=== PATIENT | female | born 1970 | race Caucasian/White ===

== ENCOUNTER 2017-11-04 03:33 | Emergency (ER) | payer OTHER, MEDICAID, SELFPAY ==
[2017-11-04 03:40] VITALS: BP 116/72; PULSE 80; RESP 18; TEMP 36.7; O2SAT 99; BMI 24.0
[2017-11-04] MEDS: MECLIZINE HCL 12.5 MG TABLET 50 MG PO (03:58)
--- NOTE | 2017-11-04 04:47 | ED_ITS ---
HPI - Dizziness General Chief Complaint: Dizziness Stated Complaint: VERTIGO ISSUES Time Seen by Provider: 11/04/17 03:50 Source: patient Mode of arrival: ambulatory Limitations: no limitations History of Present Illness HPI Narrative: The patient developed dizziness tonight. she feels a little ear pressure. She has no other URI symptoms. Specifically no sore throat or fever. She denies headache or visual changes. She has no peripheral numbness or weakness. She has a prior history of vertigo. She has done well with meclizine previously. She has not vomited. Related Data Previous Rx's Medication Instructions Recorded meclizine 25 mg PO QID PRN #20 tab 11/04/17 Allergies Allergy/AdvReac Type Severity Reaction Status Date / Time moxifloxacin [From AVELOX] Allergy Unknown Hives Verified 09/22/17 19:07 Review of Systems Review of Systems All systems reviewed & are unremarkable except as noted in HPI and below Constitutional Denies chills, Denies fever(s), Denies headache(s), Denies lethargy and Denies weakness Eyes Comments: No visual changes. ENT Ears, Nose, Mouth, and Throat: Reports vertigo, Reports dizziness, Reports otalgia, Denies headache(s), Denies neck pain, Denies post nasal drip, Denies sinus pressure and Denies sore throat Cardiovascular Denies chest pain, Denies irregular heart rhythm, Denies palpitations and Denies dyspnea Respiratory Denies dyspnea Gastrointestinal Gastrointestinal: Reports nausea and Denies vomiting Musculoskeletal Denies neck pain Neurologic Reports vertigo, Reports dizziness, Denies headache(s) and Denies weakness Endocrine Denies palpitations [facility] Social History Smoking Status: Former smoker Exam Initial Vital Signs Initial Vital Signs: Vital Signs Temperature 98.1 F 11/04/17 03:40 Pulse Rate 80 11/04/17 03:40 Respiratory Rate 18 11/04/17 03:40 Blood Pressure 116/72 11/04/17 03:40 Pulse Oximetry 99 11/04/17 03:40 Const General: cooperative and well developed Nutritional Appearance: well nourished Orientation: alert, awake, oriented x3 and not confused HENSD Head: normocephalic and atraumatic Ears: external ears normal, TM normal on the left and TM abnormal other (The right TM is retracted.) Nose: external nose normal and No nasal discharge Face and sinus: sinuses nontender, face symmetric, no sinus tenderness and No dry mucous membranes Mouth: oral mucosae normal and moist mucous membranes Teeth and gingiva: dentition normal Throat: tonsils normal and uvula midline Eyes General: appearance normal, both eyes and all related structures Eyelids: eyelids normal Conjunctivae: conjunctivae normal Sclera: sclerae normal Pupils: PERRL EOM: EOM intact bilaterally Neck Neck: No lymphadenopathy and No tender Resp Effort & Inspection: normal respiratory effort, able to speak in complete sentences, no respiratory distress and no use of accessory muscles Auscultation: clear to auscultation bilaterally, no rales, no rhonchi and no wheezes Cardio Rate: regular rate Rhythm: regular rhythm Heart Sounds: no click, no gallops, no murmurs and no rubs Pulses: normal peripheral pulses Neuro General: alert, oriented x3, gait normal and no focal motor deficits Speech: speech normal Course Vital Signs - 8 hr 11/04/17 03:40 Temperature 98.1 F Pulse Rate 80 Respiratory Rate 18 Blood Pressure 116/72 Pulse Oximetry 99 Discharge Plan Departure Patient Disposition: Home, Self-Care Clinical Impression: Vertigo Discharge Date/Time: 11/04/17 04:59 Instructions: Vertigo Activity Restrictions/Additional Instructions: Meclizine every 6 hours as needed for dizziness or nausea. Return here or see your doctor if worse. Prescriptions: New meclizine 25 mg tablet 25 mg PO QID PRN (Reason: vertigo) Qty: 20 RF: 0
[2017-11-04 04:59] VITALS: BP 119/73; PULSE 76; RESP 18; O2SAT 99
== END 2017-11-04 04:59 | disposition home or self-care (01) ==
PROVIDERS: Emergency Provider Emergency Medicine
DX: R42 Dizziness and giddiness (principal)
CPT/HCPCS: 99282

== ENCOUNTER 2018-03-29 15:37 | Emergency (ER) | payer OTHER, MEDICAID, SELFPAY ==
[2018-03-29 15:46] VITALS: BP 139/87; PULSE 74; RESP 15; TEMP 36.9; O2SAT 99; BMI 24.0
--- NOTE | 2018-03-29 17:01 | ED.UPPEXIN ---
HPI - Extremity Injury (Upper) <VALENTINA Velasquez - Last Filed: 03/29/18 19:28> General Chief Complaint: Extremity Injury, Upper Stated Complaint: fall in shower, left should and right hip pain Time Seen by Provider: 03/29/18 16:42 Source: patient Mode of arrival: ambulatory Limitations: no limitations History of Present Illness HPI narrative: pt c/o almost falling in shower last night, slipped on wet and R leg went forward causing hip pain and she grabbed rail with L hand which caused her to pull her L shoulder, R handed complaint: injury to: left and shoulder Onset (ago): day(s) (last night) Other injuries: RLE (R hip) Handedness: right Place: home Severity: moderate Relieving factors: none Exacerbating factors: movement of extremity Context: other Associated symptoms: denies other symptoms Related Data Previous Rx's Medication Instructions Recorded tramadol [Ultram] 50 mg PO Q6H PRN #20 tab 03/29/18 Allergies Allergy/AdvReac Type Severity Reaction Status Date / Time moxifloxacin [From AVELOX] Allergy Unknown Hives Verified 03/29/18 15:46 Review of Systems <VALENTINA Velasquez - Last Filed: 03/29/18 19:28> Review of Systems All systems reviewed & are unremarkable except as noted in HPI and below Constitutional Reports as per HPI Musculoskeletal Reports as per HPI, Reports abnormal gait, Denies deformity, Reports limited range of motion, Denies muscle weakness and Denies numbness Integumentary/Breasts Reports as per HPI, Denies unusual bruising and Denies wounds Neurologic Reports abnormal gait and Denies numbness Exam <VALENTINA Velasquez - Last Filed: 03/29/18 19:28> Initial Vital Signs Initial Vital Signs: Vital Signs Temperature 98.4 F 03/29/18 15:46 Pulse Rate 74 03/29/18 15:46 Respiratory Rate 15 03/29/18 15:46 Blood Pressure 139/87 03/29/18 15:46 Pulse Oximetry 99 03/29/18 15:46 Const General: cooperative, healthy appearing, comfortable, well developed and well groomed Nutritional Appearance: average body habitus Orientation: alert, awake and oriented x3 HENMT Head: normal to inspection and normocephalic Ears: hearing grossly normal bilaterally, external ears normal, TM's normal bilaterally and mastoids normal Nose: external nose normal and nares normal Face and sinus: normal facial exam, sinuses nontender and face symmetric Mouth: oral mucosae normal, lip normal, tongue normal, oropharynx normal and moist mucous membranes Teeth and gingiva: dentition normal and gingiva normal Throat: posterior oropharynx normal, tonsils normal and uvula midline Eyes General: appearance normal, both eyes and all related structures Visual Bailey: normal visual bailey by confrontation Eyelids: eyelids normal Conjunctivae: conjunctivae normal Sclera: sclerae normal Pupils: PERRL EOM: EOM intact bilaterally Neck Neck: normal visual inspection, full ROM, no meningeal signs, trachea midline, supple and No lymphadenopathy Chest Chest: normal inspection of the chest Resp Effort & Inspection: normal respiratory effort and able to speak in complete sentences Auscultation: clear to auscultation bilaterally Cardio Rate: regular rate Rhythm: regular rhythm Heart Sounds: S1 normal and S2 normal Back/Spine/Pelvis Cervical Spine: cervical ROM normal Thoracic/Lumbar Spine: thoraco-lumbar ROM normal Skin General: no rashes or lesions noted, elasticity normal, turgor normal and dry skin Neuro General: alert, awake, oriented x3 and meningeal signs present Cognition: normal cognition Speech: speech normal Gait: normal gait Motor: muscle tone normal throughout Sensory Exam: no sensory deficits noted Extrem Right upper extremity: normal to inspection and full ROM Left upper extremity: shoulder/upper arm (decreased rom of L shoulder secondary to pain, nontender) Right lower extremity: hip/thigh (R hip tender over iliac crest) Left lower extremity: normal to inspection and full ROM Psych Appearance: grossly normal and well kempt Mental Status: mental status grossly normal Speech and Movement: speech and movement normal Mood: congruent mood Affect: normal affect Attitude: cooperative Thought Process: normal Thought Content: normal Judgment: judgment good <Brigida Jones DO - Last Filed: 03/30/18 21:22> Initial Vital Signs Initial Vital Signs: Vital Signs Temperature 98.4 F 03/29/18 15:46 Pulse Rate 74 03/29/18 15:46 Respiratory Rate 15 03/29/18 15:46 Blood Pressure 139/87 03/29/18 15:46 Pulse Oximetry 99 03/29/18 15:46 Course <VALENTINA Velasquez - Last Filed: 03/29/18 19:28> Course Narrative: results and dc plan discussed Orders Ordered: Discontinued Medications Ketorolac Tromethamine (Toradol) 60 mg IM NOW ONE Stop: 03/29/18 17:09 Last Admin: 03/29/18 19:15 Dose: 60 mg Vital Signs - 8 hr 03/29/18 15:46 Temperature 98.4 F Pulse Rate 74 Respiratory Rate 15 Blood Pressure 139/87 Pulse Oximetry 99 <Brigida Jones DO - Last Filed: 03/30/18 21:22> Orders Ordered: Discontinued Medications Ketorolac Tromethamine (Toradol) 60 mg IM NOW ONE Stop: 03/29/18 17:09 Last Admin: 03/29/18 19:15 Dose: 60 mg Vital Signs - 8 hr 03/29/18 15:46 Temperature 98.4 F Pulse Rate 74 Respiratory Rate 15 Blood Pressure 139/87 Pulse Oximetry 99 MDM - Extremity Injury (Upper) <VALENTINA Velasquez - Last Filed: 03/29/18 19:28> Differential Diagnosis Differential diagnosis: Likely dislocation of shoulder, fracture of humerus, fracture of clavicle and other Discharge Plan Departure Patient Disposition: Home Clinical Impression: Left shoulder strain, Hip strain Discharge Date/Time: 03/29/18 19:46 Interventions: ED Discharge Assessment Last Done: 03/29/18 19:46 Instructions: DI for Shoulder Sprain, DI for Hip Pain Prescriptions: New tramadol [Ultram] 50 mg tablet 50 mg PO Q6H PRN (Reason: pain) Qty: 20 RF: 0 Referrals: Bobby Sevilla MD [Physician] - (follow up in approx 5-7 days as needed ) TammyIFClifford Samuels [Medical Student] - John Lion MD [Physician] - Sharee Shabazz [Medical Student] - Ata August MD [Physician] - Nancy Chicas MD [Physician] - <Brigida Jones DO - Last Filed: 03/30/18 21:22> Cosign ED Attending Rajivature Attestation: I was immediately available in the department for consultation. This documentation has been reviewed and I agree with assessment and plan. Supervised by Brigida Jones DO
--- NOTE | 2018-03-29 17:08 | DI.RAD.S_ITS ---
PROCEDURE: XR SHOULDER LT MIN 2V INDICATIONS: near fall TECHNIQUE: 3 views of the shoulder were acquired. COMPARISON: None. FINDINGS: Bones: No fractures or dislocations. No suspicious bony lesions. Visualized ribs appear intact. Soft tissues: No suspicious soft tissue calcifications. IMPRESSION: No acute fracture or dislocation of the left shoulder identified. Consider followup radiographs in 7-10 days if there is continued clinical concern. Dictated by: David Virgen M.D. on 03/29/2018 at 17:54 Approved by: David Virgen M.D. on 03/29/2018 at 17:55
--- NOTE | 2018-03-29 17:08 | DI.RAD.S_ITS ---
PROCEDURE: XR HIP W PEL IF DONE RT 2V INDICATIONS: near fall TECHNIQUE: AP pelvis with additional view(s) of the right hip(s). COMPARISON: None. FINDINGS: Bones: No fractures or dislocations. Pelvic ring appears intact. No suspicious bony lesions. Mild degenerative changes of the hip joints bilaterally noted. Soft tissues: The visualized bowel gas pattern is normal. No suspicious soft tissue calcifications. An intrauterine device projects over the midline pelvis. IMPRESSION: No acute fracture or dislocation of the right hip or pelvis identified. Dictated by: David Virgen M.D. on 03/29/2018 at 18:22 Approved by: David Virgen M.D. on 03/29/2018 at 18:24
[2018-03-29] MEDS: KETOROLAC 60 MG/2 ML VIAL IM (19:15)
[2018-03-29 19:38] VITALS: BP 123/78; PULSE 60; RESP 15; O2SAT 100
[2018-03-29 19:46] VITALS: BP 127/78; PULSE 66; RESP 16; O2SAT 100
== END 2018-03-29 19:46 | disposition home or self-care (01) ==
PROVIDERS: Emergency Provider Nurse Practitioner
DX: S76.011A Strain of muscle, fascia and tendon of right hip, initial encounter (principal); S46.912A Strain of unspecified muscle, fascia and tendon at shoulder and upper arm level, left arm, initial encounter; W18.2XXA Fall in (into) shower or empty bathtub, initial encounter
CPT/HCPCS: 73030; 73502; 96372; 99282; 99283; J1885

== ENCOUNTER → 2019-06-14 10:49 | Outpatient (CLI) | payer OTHER, MEDICAID, SELFPAY ==
[2019-06-14 11:57] LABS: Appearance Urine UA CLEAR; Bilirubin Urine UA NEGATIVE (NEGATIVE); Color Urine UA YELLOW; Glucose Urine UA NEGATIVE (Negative); Ketones Urine UA NEGATIVE (NEGATIVE); Leukocyte Esterase Urine UA TRACE (NEGATIVE); Nitrite Urine UA NEGATIVE (Negative); Occult Blood Urine UA 2+ (Negative); Protein Urine UA NEGATIVE (Negative); Specific Gravity Urine UA <=1.005 (1.000-1.035); Urobilinogen Urine UA 0.2 E.U./dL (0.2)
[2019-06-14 12:00] LABS: Bacteria Urine None Seen; WBC Urine None Seen (0-5/HPF); pH Urine UA 6.5 (4.5-8.0)
[2019-06-14 12:01] LABS: Add Manual Diff / Slide Review NO; Basophils Absolute Auto 0 /uL (0-100); Basophils Percent Auto 0.6 % (0-2); Eosinophils Absolute Auto 100 /uL (0-450); Hematocrit 39.2 % (36-46); Hemoglobin 13.1 g/dL (12.0-16.0); Lymphocytes Absolute Auto 2100 /uL (1100-4500); Lymphocytes Percent Auto 30.9 % (25-40); Mean Corpuscular HGB Conc 33.5 % (30-36); Mean Corpuscular Hemoglobin 29.8 PG (26-34); Monocytes Absolute Auto 300 /uL (0-900); Monocytes Percent Auto 4.7 % (3-14); Neutrophils Absolute Auto 4300 /uL (1500-7000); Neutrophils Percent Auto 62.8 % (50-75); Platelet Count 325 X10^3/uL (150-400); Red Cell Distribution Width 13.6 % (11.6-14.8); White Blood Cell Count 6.8 X10^3/uL (4.5-11.0)
[2019-06-14 12:07] LABS: Culture Indicated Urine Cult Not Indicated; RBC Urine 1-5/HPF (0-5/HPF); Squamous Epithelial Cell Urine 1-5 /HPF (0-5/HPF)
[2019-06-14 12:13] LABS: Alanine Aminotransferase 21 IU/L (<35); Albumin 4.2 g/dL (3.5-5.0); Albumin Globulin Ratio 1.6 (1.0-2.8); Alkaline Phosphatase 64 U/L (38-126); Aspartate Aminotransferase 28 IU/L (14-36); Bilirubin Total 0.3 mg/dL (0.2-1.3); Blood Urea Nitrogen 12 mg/dL (7-17); Calcium 9.9 mg/dL (8.4-10.2); Carbon Dioxide 28 mmol/L (22-32); Chloride 104 mmol/L (98-107); Cholesterol 174 mg/dL (140-199); Estimated Glomerular Filt Rate > 60.0 mL/min (>60); Globulin 2.6 g/dL (1.7-4.1); Glucose 92 mg/dL (70-100); HDL Cholesterol 66 mg/dL (40-60); HEMOLYSIS < 15 (0-50); LDL Cholesterol Calculated 90 mg/dL (<100); Potassium 4.6 mmol/L (3.4-5.1); Sodium 139 mmol/L (137-145); Total Protein 6.8 g/dL (6.3-8.2); Triglycerides 91 mg/dL (35-150)
[2019-06-14 12:57] LABS: Thyroid Stimulating Hormone 1.48 uIU/mL (0.47-4.68)
== END ==
PROVIDERS: PCP Family Medicine; Visit Provider Family Medicine
DX: Z13.220 Encounter for screening for lipoid disorders (principal); L03.116 Cellulitis of left lower limb; R42 Dizziness and giddiness; N39.0 Urinary tract infection, site not specified
CPT/HCPCS: 36415; 80053; 80061; 81003; 81015; 84443; 85025

== ENCOUNTER 2019-08-28 06:12 | Emergency (ER) | payer OTHER, MEDICAID, SELFPAY ==
[2019-08-28 06:21] VITALS: BP 135/65; PULSE 96; RESP 18; TEMP 36.5; O2SAT 100; BMI 23.1
--- NOTE | 2019-08-28 06:52 | ED.AMS ---
HPI - Altered Mental Status General Chief Complaint: Upper Respiratory Symptoms Stated Complaint: goopy eyes sore throat stuffy nose cough Time Seen by Provider: 08/28/19 06:15 Source: patient Mode of arrival: Ambulatory Limitations: no limitations History of Present Illness HPI narrative: 49F smoker with noncontributory medical history presents to the emergency department because she woke up this morning with a runny nose, sneezing, goopy eyes and fullness in her ears. She denies any chest pain or shortness of breath. She denies any fever or chills. She has no GI symptoms such as nausea, vomiting or diarrhea. She denies any exposure to persons known to be of suspicion for COVID-19. Related Data Previous Rx's Medication Instructions Recorded duloxetine 60 mg capsule,delayed 60 mg PO DAILY #90 cap 06/28/19 release meclizine 25 mg tablet 25 mg PO TID PRN #30 tab 06/28/19 metronidazole 250 mg tablet 500 mg PO BID #28 tab 07/14/19 Allergies Allergy/AdvReac Type Severity Reaction Status Date / Time moxifloxacin [From AVELOX] Allergy Unknown Hives Verified 07/10/19 16:24 Review of Systems Constitutional Constitutional: Denies chills, Denies fatigue, Denies fever(s), Denies frequent falls, Denies lethargy and Denies weakness Eyes Eyes: Denies change in vision, Denies eye discharge, Reports irritation and Denies loss of vision ENT Ears, Nose, Mouth, and Throat: Denies change in voice, Denies dizziness, Reports otalgia, Reports nasal congestion, Denies neck pain, Denies sore throat and Denies throat swelling Cardiovascular Cardiovascular: Denies chest pain, Denies irregular heart rhythm, Denies lightheadedness, Denies palpitations, Denies dyspnea, Denies dyspnea on exertion and Denies orthopnea Respiratory Respiratory: Denies cough, Denies dyspnea, Denies dyspnea on exertion and Denies wheezing Gastrointestinal Gastrointestinal: Denies abdominal pain, Denies change in bowel habits, Denies diarrhea, Denies nausea and Denies vomiting Genitourinary Genitourinary: Denies hematuria, Denies flank pain, Denies urinary incontinence and Denies urinary urgency Musculoskeletal Musculoskeletal: Denies back pain, Denies muscle weakness, Denies neck pain, Denies numbness and Denies tingling Integumentary/Breasts Skin/Breast: Denies pruritus, Denies erythema, Denies rash and Denies wounds Neurologic Neurologic: Denies behavioral changes, Denies confusion, Denies dizziness, Denies frequent falls, Denies loss of vision, Denies numbness, Denies tingling and Denies weakness Psychiatric Psychiatric: Denies anxiety, Denies behavioral changes, Denies confusion, Denies depression, Denies homicidal ideation and Denies suicidal ideation Endocrine Endocrine: Denies fatigue, Denies flushing and Denies palpitations Hematologic/Lymphatic Hematologic/Lymphatic: Denies easy bruising Allergic/Immunologic Allergic/Immunologic: Denies urticaria, Denies throat swelling and Denies wheezing Patient History Medical History Allergies (Chronic ~2001) Anemia (Chronic ~2007) Anxiety (Chronic ~2007) Chicken pox (Resolved ~1973) Depression (Chronic ~2007) Left ankle sprain (Resolved ~2007) Migraines (Chronic ~2007) Restless leg syndrome (Chronic ~2007) Vision disorder (Chronic) Surgical History Anesthesia (Resolved) History of tubal ligation (Resolved ~1997) Status post trigger finger release (Resolved ~2013) Family History Father Hypertension Hyperlipidemia Mental health problem Stroke Mother History of heart surgery Brother Mental health problem Sister Mental health problem Grandfather Mental health problem Grandmother Cancer Mental health problem Grandfather Mental health problem Grandmother Mental health problem Social History Smoking Status: Current some day smoker Smoking Status: Current some day smoker alcohol intake frequency: 0-2 drinks per day Substance Use Type: marijuana Exam Narrative Exam Narrative: GEN: AOx3 and in mild distress EYES: Pupils are equal, round, and reactive to light and accommodation. Extraoccular muscles are intact bilaterally. There is no subconjunctival hemorrhage or exudate. CHEST: Lungs are clear to auscultation bilaterally and free of wheezes, rales, or rhonchi. Heart rate is regular rhythm, there are no murmurs, clicks, rubs, or gallops. There is no chest wall tenderness. ABD: Abdomen is soft and nontender. There is no guarding or rebound. Bowel sounds are normal in all 4 quadrants. There is no mass or organomegaly. EXT: Full painless ROM of all extremities with no loss of sensation or strength. SKIN: Warm, pink, and dry. No erythema or rash Initial Vital Signs Initial Vital Signs: Vital Signs Temperature 97.7 F 08/28/19 06:21 Pulse Rate 96 H 08/28/19 06:21 Respiratory Rate 18 08/28/19 06:21 Blood Pressure 135/65 08/28/19 06:21 Pulse Oximetry 100 08/28/19 06:21 Course Orders Ordered: Discontinued Medications Sulfacetamide (Bleph-10 Prepack) [facility] 08/28/19 07:20 Dose: 1 bottle Documented by: HARRY Vital Signs Vital signs: Vital Signs - 8 hr 08/28/19 06:21 Temperature 97.7 F Pulse Rate 96 H Respiratory Rate 18 Blood Pressure 135/65 Pulse Oximetry 100 Discharge Plan Departure Patient Disposition: Home Clinical Impression: Viral URI Conjunctivitis Qualifiers: Conjunctivitis type: acute Acute conjunctivitis type: unspecified Laterality: bilateral Qualified Code(s): H10.33 - Unspecified acute conjunctivitis, bilateral Discharge Date/Time: 08/28/19 07:27 Activity Restrictions/Additional Instructions: *You have been diagnosed with [Acute viral upper respiratory infection with conjunctivitis ] *What to do: *Take medications as directed *Follow up with your primary care provider in 2-3 days, call for an appointment. Let them know you were seen in the Emergency Department and that we ask that you be seen in follow up *Return to ER if you should have any new, worsening or concerning symptoms Prescriptions: No Action metronidazole 250 mg tablet 500 mg PO BID Qty: 28 RF: 0 duloxetine 60 mg capsule,delayed release(DR/EC) 60 mg PO DAILY Qty: 90 RF: 1 meclizine 25 mg tablet 25 mg PO TID PRN (Reason: dizziness) Qty: 30 RF: 1 Referrals: Sejal Johnson DO [Primary Care Provider] -
[2019-08-28] MEDS: SULFACETAMIDE 10% OPHTH PREPACK 1 BOTTLE MISC (07:20)
[2019-08-28 07:26] VITALS: BP 113/66; PULSE 72; RESP 16; O2SAT 100
== END 2019-08-28 07:27 | disposition home or self-care (01) ==
PROVIDERS: Emergency Provider Emergency Medicine; PCP Family Medicine
DX: J06.9 Acute upper respiratory infection, unspecified (principal); H10.33 Unspecified acute conjunctivitis, bilateral
CPT/HCPCS: 99281; 99282

== ENCOUNTER 2020-01-11 16:16 | Emergency (ER) | payer OTHER, MEDICAID, SELFPAY ==
[2020-01-11 16:23] VITALS: BP 137/73; PULSE 74; RESP 12; TEMP 35.9; O2SAT 100; BMI 23.1
--- NOTE | 2020-01-11 18:04 | PC.NURSE ---
Patient reported to admitting she was leaving without completing her evaluation.
--- NOTE | 2020-01-11 20:00 | ED.FEMALEGU ---
HPI - Female Genitourinary General Chief complaint: Urogenital-Female Stated complaint: thinks she has an STD Time Seen by Provider: 01/11/20 16:20 Source: patient Mode of arrival: Ambulatory Related Data Previous Rx's Medication Instructions Recorded duloxetine 60 mg capsule,delayed 60 mg PO DAILY #90 cap 06/28/19 release meclizine 25 mg tablet 25 mg PO TID PRN #30 tab 06/28/19 metronidazole 250 mg tablet 500 mg PO BID #28 tab 07/14/19 Allergies Allergy/AdvReac Type Severity Reaction Status Date / Time moxifloxacin [From AVELOX] Allergy Unknown Hives Verified 01/11/20 16:28 Patient History Medical History (Updated 01/11/20 @ 18:06 by Linh Lyle RN) Allergies (Chronic ~2001) Anemia (Chronic ~2007) Anxiety (Chronic ~2007) Chicken pox (Resolved ~1973) Depression (Chronic ~2007) Left ankle sprain (Resolved ~2007) Migraines (Chronic ~2007) Restless leg syndrome (Chronic ~2007) Vision disorder (Chronic) Surgical History Anesthesia (Resolved) History of tubal ligation (Resolved ~1997) Status post trigger finger release (Resolved ~2013) Family History Father Hypertension Hyperlipidemia Mental health problem Stroke Mother History of heart surgery Brother Mental health problem Sister Mental health problem Grandfather Mental health problem Grandmother Cancer Mental health problem Grandfather Mental health problem Grandmother Mental health problem alcohol intake frequency: 0-2 drinks per day Substance Use Type: marijuana Exam Initial Vital Signs Initial Vital Signs: Vital Signs Temperature 96.7 F L 01/11/20 16:23 Pulse Rate 74 01/11/20 16:23 Respiratory Rate 12 01/11/20 16:23 Blood Pressure 137/73 01/11/20 16:23 Pulse Oximetry 100 01/11/20 16:23 Course Orders Ordered: ED Orders 01/11/20 18:08 Chlamydia Gonorrhea PCR -URINE Stat Urinalysis and Microscopic Stat Vital Signs Vital signs: Vital Signs - 8 hr 01/11/20 16:23 Temperature 96.7 F L Pulse Rate 74 Respiratory Rate 12 Blood Pressure 137/73 Pulse Oximetry 100 Discharge Plan Departure Patient Disposition: Left Without Being Seen Clinical Impression: Patient left after triage Discharge Date/Time: 01/11/20 18:00
== END 2020-01-11 18:00 | disposition left against medical advice (07) ==
PROVIDERS: Emergency Provider Emergency Medicine; PCP Family Medicine
DX: R10.9 Unspecified abdominal pain (principal)
CPT/HCPCS: 99281

== ENCOUNTER 2020-01-12 08:34 | Emergency (ER) | payer OTHER, MEDICAID, SELFPAY ==
[2020-01-12 09:01] VITALS: BP 161/71; PULSE 69; RESP 16; TEMP 36.4; O2SAT 98; BMI 23.1
--- NOTE | 2020-01-12 09:32 | ED_ITS ---
HPI - Female Genitourinary General Chief complaint: Abdominal Pain Stated complaint: ABDOMINAL CRAMPS/ VAG DISCHARGE/ BF CHEATED Time Seen by Provider: 01/12/20 09:21 Source: patient Mode of arrival: Ambulatory Limitations: no limitations History of Present Illness HPI Narrative: Patient is a 49-year-old female who presents with urinary urgency and frequency and abdominal cramping. She says she has a history of Trichomonas and this feels similar. Symptoms have been ongoing for the last 3 days. She denies any fever chills nausea vomiting. She was here last evening but left before being seen because it was too busy. Complaint: possible STD Related Data Previous Rx's Medication Instructions Recorded duloxetine 60 mg capsule,delayed 60 mg PO DAILY #90 cap 06/28/19 release meclizine 25 mg tablet 25 mg PO TID PRN #30 tab 06/28/19 metronidazole 250 mg tablet 500 mg PO BID #28 tab 07/14/19 metronidazole [Flagyl] 500 mg PO BID #14 tab 01/12/20 Allergies Allergy/AdvReac Type Severity Reaction Status Date / Time moxifloxacin [From AVELOX] Allergy Unknown Hives Verified 01/11/20 16:28 Review of Systems Review of Systems Narrative: GENERAL: Denies chills,fever HEENT: Denies throat pain RESPIRATORY: Denies dyspnea, cough, wheezing CARDIOVASCULAR: Denies chest pain, palpitations GASTROINTESTINAL: Abdominal pain Denies nausea, vomiting MUSCULOSKELETAL: Denies extremity pain, injury : See HPI SKIN: No rash, no laceration, no pruritus NEUROLOGIC: Denies weakness, dizziness, headache, numbness 8 point review of systems is negative except for those stated above and HPI Patient History Medical History (Updated 01/12/20 @ 11:00 by Kasandra Barahona DO) Allergies (Chronic ~2001) Anemia (Chronic ~2007) Anxiety (Chronic ~2007) Chicken pox (Resolved ~1973) Depression (Chronic ~2007) Left ankle sprain (Resolved ~2007) Migraines (Chronic ~2007) Restless leg syndrome (Chronic ~2007) Vision disorder (Chronic) Surgical History Anesthesia (Resolved) History of tubal ligation (Resolved ~1997) Status post trigger finger release (Resolved ~2013) Family History Father Hypertension Hyperlipidemia Mental health problem Stroke Mother History of heart surgery Brother Mental health problem Sister Mental health problem Grandfather Mental health problem Grandmother Cancer Mental health problem Grandfather Mental health problem Grandmother Mental health problem alcohol intake frequency: 0-2 drinks per day Substance Use Type: marijuana Exam Initial Vital Signs Initial Vital Signs: Vital Signs Temperature 97.6 F 01/12/20 09:01 Pulse Rate 69 01/12/20 09:01 Respiratory Rate 16 01/12/20 09:01 Blood Pressure 161/71 H 01/12/20 09:01 Pulse Oximetry 98 01/12/20 09:01 GENERAL: Well-appearing, well-nourished and in no acute distress. HEENT: Head atraumatic,EOMI, pupils reactive] CARDIOVASCULAR: Regular rate and rhythm without murmurs, rubs or gallops. RESPIRATORY: Breath sounds equal bilaterally, no wheezes rales or rhonchi. ABDOMEN: Soft, minimal abdominal tenderness in suprapubic area no guarding no rebound : No CVA tenderness PELVIC: External genitalia is normal, no vaginal bleeding, no vaginal discharge, no odor, cervical os is closed, no adnexal tenderness--nurse Kirsten in room EXTREMITIES: Normal range of motion, no clubbing or edema. Neurovascularly intact NEUROLOGICAL: Alert and oriented x4.Normal gait and speech. SKIN: Warm, dry, no laceration, no petechiae, no rashes or lesions. Course Orders Ordered: ED Orders 01/12/20 09:10 Chlamydia Gonorrhea PCR -URINE Stat Urine Microscopic Stat 01/12/20 10:25 Chlamydia/Gonoc/Myco Genital Stat Genital Culture Stat Wet Prep Tric BV Mary Stat Vital Signs Vital signs: Vital Signs - 8 hr 01/12/20 09:01 01/12/20 11:06 Temperature 97.6 F Pulse Rate 69 60 Respiratory Rate 16 Blood Pressure 161/71 H 124/74 Pulse Oximetry 98 100 MDM - Female Genitourinary Lab Data Attestation: I reviewed the patient's lab results. Labs: Lab Results 01/12/20 01/12/20 Range/Units 09:10 09:10 Urine RBC 0-1/hpf (0-5/HPF) Urine WBC 5-10/hpf H (0-5/HPF) Ur Squamous Epith Cells >30 /hpf H D (0-5/HPF) Urine Bacteria Few (2-10) H (None) Urine Mucus 2+ H (Negative) Ur Culture Indicated? Cult not indicated Ur Chlamydia DNA (PCR) Not detected N gonorrhoeae DNA (PCR) Not detected Point of Care Testing Test Results Negative Urine Dip Bedside Urine Glucose Negative Bedside Urine Bilirubin + 1 Bedside Urine Ketone - Negative Urine Specific Heidrick 1.025 Bedside Urine Occult Blood +/- Bedside Urine pH 6.0 Bedside Urine Protein + 30 Bedside Urine Urobilinogen +/- 1mg Bedside Urine Nitrite - Negative Bedside Urine Leukocytes + 70 Esterase MDM Narrative Medical decision making narrative: Patient has small amount of clue cells on her wet prep. Will treat for Trichomonas. Discharge Plan Departure Patient Disposition: Home Clinical Impression: Infection due to trichomonas Discharge Date/Time: 01/12/20 11:10 Instructions: Trichomoniasis Activity Restrictions/Additional Instructions: *You have been diagnosed with Trichomonas *What to do: I recommend you have further STD testing such as HIV and hepatitis your primary care provider. Currently gonorrhea and chlamydia are still pending however based on your exam I do not think any antibiotics really *Continue to take medications as directed--> SENT [facility] [place] Flagyl 500 mg twice a day for 7 days *Follow up with your primary care provider in 2-3 days *Return to ER if you should have increased abdominal pain or urinary frequency or any new, worsening or concerning symptoms Prescriptions: New metronidazole [Flagyl] 500 mg tablet 500 mg PO BID Qty: 14 RF: 0 No Action metronidazole 250 mg tablet 500 mg PO BID Qty: 28 RF: 0 duloxetine 60 mg capsule,delayed release(DR/EC) 60 mg PO DAILY Qty: 90 RF: 1 meclizine 25 mg tablet 25 mg PO TID PRN (Reason: dizziness) Qty: 30 RF: 1 Referrals: Abdiel Nuno DO [Primary Care Provider] -
[2020-01-12 09:47] LABS: Bacteria Urine Few (2-10); Culture Indicated Urine Cult Not Indicated; Mucus Urine 2+ (Negative); RBC Urine 0-1/HPF (0-5/HPF); Squamous Epithelial Cell Urine >30 /HPF (0-5/HPF); WBC Urine 5-10/HPF (0-5/HPF)
--- NOTE | 2020-01-12 10:00 | PC.NURSE ---
md at bedside performing pelvic exam
[2020-01-12 11:06] VITALS: BP 124/74; PULSE 60; O2SAT 100
[2020-01-12 11:06] LABS: Urine N gonorrhoeae NOT DETECTED
[2020-01-12 11:28] LABS: Urine Chlamydia NOT DETECTED
[2020-01-17 04:36] LABS: Chlamydia trachomatis Negative (Negative); Mycoplasma genitalium Negative (Negative); Neisseria gonorrhoeae Negative (Negative)
== END 2020-01-12 11:10 | disposition home or self-care (01) ==
PROVIDERS: Emergency Provider Emergency Medicine; PCP Family Medicine
DX: A59.9 Trichomoniasis, unspecified (principal); Z11.3 Encounter for screening for infections with a predominantly sexual mode of transmission
CPT/HCPCS: 81003; 81015; 81025; 87070; 87077; 87186; 87205; 87210; 87491; 87591; 99282

== ENCOUNTER → 2020-06-18 16:16 | Outpatient (CLI) | payer OTHER, MEDICAID, SELFPAY ==
[2020-06-20 06:04] LABS: Candida species Negative (Negative); Gardnerella vaginalis Negative (Negative); Trichomoas vaginalis Negative (Negative)
== END ==
PROVIDERS: PCP Family Medicine; Visit Provider Obstetrics & Gynecology
DX: Z11.3 Encounter for screening for infections with a predominantly sexual mode of transmission (principal)
CPT/HCPCS: 87480; 87510; 87660

== ENCOUNTER → 2020-07-01 12:05 | Outpatient (CLI) | payer OTHER, MEDICAID, SELFPAY ==
[2020-07-02 10:09] LABS: Candida species Negative (Negative); Gardnerella vaginalis Negative (Negative); Trichomoas vaginalis Negative (Negative)
== END ==
PROVIDERS: PCP Family Medicine; Visit Provider Obstetrics & Gynecology
DX: N89.8 Other specified noninflammatory disorders of vagina (principal); R10.2 Pelvic and perineal pain
CPT/HCPCS: 87070; 87205; 87480; 87510; 87660

== ENCOUNTER → 2020-07-26 09:12 | Outpatient (CLI) | payer OTHER, MEDICAID, SELFPAY ==
[2020-07-26 11:05] LABS: COVID19 -Nasal RAPID Negative (Negative)
== END ==
PROVIDERS: PCP Family Medicine; Visit Provider Surgery
DX: Z20.822 Contact with and (suspected) exposure to COVID-19 (principal)
CPT/HCPCS: 87635; C9803

== ENCOUNTER 2020-07-29 07:21 | Day surgery (SDC) | payer OTHER, MEDICAID, SELFPAY ==
[2020-07-29] VITALS (16 sets, daily range): BP systolic 101–149; BP diastolic 44–81; PULSE 40–69; RESP 8–17; TEMP 35.4–36.9; O2SAT 97–100; BMI 24.0
--- NOTE | 2020-07-29 | PATH_ITS ---
[facility] Accession Number: [id number] . 01 Material submitted: . PART A: colon - TRANSVERSE POLYP PART B: colon - CECAL POLYPS X3 PART C: rectum - RECTAL POLYP . 01 Clinical history: . SDC . 02 Diagnosis: A. Transverse Colon, Polyp, Biopsy: Tubular adenoma. . B. Cecum, Polyps x3, Biopsies: Tubular adenoma in four of multiple fragments. . C. Rectum, Polyp, Biopsy: Hyperplastic polyp. [facility] 08/01/2020 1525 Local . 02 Electronically signed: . Niki Flannery MD, Pathologist NPI- [id number] . 01 Gross description: . Part A: TRANSVERSE POLYP: Received in formalin are 2 fragment(s) of ocampo, soft tissue measuring 0.4 x 0.3 x 0.1 cm to 0.3 x 0.3 x 0.2 cm submitted entirely in 1 cassette(s) Part B: CECAL POLYPS X3: Received in formalin are 7 fragment(s) of ocampo, soft tissue measuring 0.4 x 0.3 x 0.2 cm to 0.2 x 0.2 x 0.1 cm submitted entirely in 1 cassette(s) Part C: RECTAL POLYP: Received in formalin are 2 fragment(s) of ocampo, soft tissue measuring 0.3 x 0.2 x 0.1 cm to 0.1 x 0.1 x 0.1 cm submitted entirely in 1 cassette(s) /QBJ 07/31/2020 0706 Local . 02 Pathologist provided ICD-10: D12.0, D12.3 . 02 CPT . 325571, [id number], [id number] Performed at: [address] [id number] MD Jeovany Ching MD Phone: [phone] Performed at: 02 [facility] [address] [place] [id number] MD Niki Flannery MD Phone: [phone]
[2020-07-29] MEDS: LACTATED RINGERS 1,000 ML 200 ML IV ×2 (07:38→09:15)
--- NOTE | 2020-07-29 07:45 | PM.PREOP ---
Pre-operative Note Interval Note History & Physical reviewed/Exam performed by Physician: Yes Changes to H&P: No
[2020-07-29] MEDS: MIDAZOLAM 5 MG/5 ML VIAL IV (08:03)
[2020-07-29] MEDS: fentaNYL 250 MCG/5 ML INJ IV (08:03)
--- NOTE | 2020-07-29 08:22 | PM.OP.ENDO ---
Operative Date/Time/Diagnoses Date of procedure: 07/29/20 Time of procedure: 08:23 Pre-op diagnosis: abdominal pain, personal history of colonic polyps Post-op diagnosis: same Procedure & Clinicians Study performed: colonoscopy polypectomy Same procedure as scheduled: Yes Indications: 50F with abdominal pain no clear etiology and personal history of colonic polyps Surgeon: Lavon Camargo Procedure Notes Procedure in detail: Medications: Conscious sedation using 6mg IV midazolam and 200mcg IV of fentanyl The history and physical was performed/updated and the patient is ASA class is 2. The procedure was discussed in detail with the patient. Potential risks complications including infection, bleeding, missed diagnosis, perforation, need for surgery, and were explained. Their questions were answered and informed consent was obtained. Patient was brought to the procedure room and placed standard monitoring equipment. The patient's vital signs were monitored continuously throughout the entire procedure. Prior to starting time-out was performed. The patient was placed in the left lateral recumbent position. Procedural sedation was administered. Examination began with a thorough inspection of the perianal area there was no evidence of fissures, fistulae, external hemorrhoids or cutaneous malignancy. The colonoscopy scope was then placed into the anal canal and was advanced to the cecum, which was identified by the ileocecal valve, the appendiceal orifice and the confluence of the taenia. The scope was then slowly withdrawn examining colon thoroughly in all directions, irrigating it of any residual stool. 5 mm transverse colon polyp removed with biopsy forceps Three adjacent cecal polyps approximately 5 mm each removed with biopsy forceps 3 mm rectal polyp removed with biopsy forceps The patient tolerated the procedure well. They will be discharged once criteria are met. The prep was of good/excellent quality. The withdrawl time was 11 minutes. The sedation time was 26 minutes. Specimen(s): other (Transverse, cecum, rectal polyps) Complications: none Impression: Colonic polyps Post-procedure Recommendations: Colonscopy in 3 years Disposition: same day surgery
--- NOTE | 2020-07-29 09:09 | SUR.PHASEII ---
0900 Observed patient dozing. Resp shallow. Spoke with patient and asked her to open her eyes - she complied. Acknowledged that she was just sleepy. 905 Observed patient sitting up, diaphoretic, restless, states that she is going through menopause and having a hot flash. [employer] had previously given her an ice pack and cool wash cloth. Afebrile 0910 Iwona Mazariegos RN cares for the patient previously, to [facility]. Pt stated that she was now 'freezing'' ice packs removed and warm blankets given.
--- NOTE | 2020-07-29 09:19 | SUR.PHASEII ---
0915 Iwona Mazariegos RN reports irreg apical heart rate - luke. Patient returned to PACU and put on the monitor.
--- NOTE | 2020-07-29 09:23 | SUR.PHASEII ---
Addendum entered by Niki Mazariegos R.N. 07/29/20 09:58: spoke with MD, start reversal, pulled flumazenil from vial and pt started arrousing, now appears more awake, will hold off on reversal for time being. HR up to 60's Addendum entered by Niki Mazariegos R.N. 07/29/20 09:37: spoke with pt, she states now that she does use marijuana but did not have any this morning. Denies any additional drug use. While sleeping HR is in 40's, occassional bumps up to 50;s then right back to 40's. pt easily arrousable and coherent with conversation. While awake, HR up to 60's, sleeping back down to 40's. Original Note: pt sleepy in phase I, awoke easily and without issue. tolerated apple juice. Taken to phase 2. There pt asked for more juice which was given, stated she had hot flash but felt fine, provided cold washcloth. Hot flash continued and ice bags applied. VS checked and HR now 39-42. Returned pt to PACU for monitoring. Notified MD, continue to watch pt. On arrival there was an aroma of marijuana on pt, pt denied using any substances during admit questions.
== END 2020-07-29 10:55 | disposition home or self-care (01) ==
PROVIDERS: PCP Family Medicine; Referring Provider Family Medicine; Visit Provider Surgery
PROC: 0DJD8ZZ Inspection of Lower Intestinal Tract, Via Natural or Artificial Opening Endoscopic (ICD-10-PCS; CPT 45378; principal; 2020-07-29 08:30)
DX: D12.0 Benign neoplasm of cecum (principal); Z86.010 Personal history of colon polyps; F17.210 Nicotine dependence, cigarettes, uncomplicated; D12.3 Benign neoplasm of transverse colon; K62.1 Rectal polyp
CPT/HCPCS: 45380; 82962; 99152; 99153; J2250; J3010

== ENCOUNTER 2020-12-26 07:30 | Emergency (ER) | payer OTHER, MEDICAID, SELFPAY ==
--- NOTE | 2020-12-26 07:39 | ED_ITS ---
HPI - Allergic Reaction General Stated complaint: stung by a bee on right elbow, swelling, pain Time Seen by Provider: 12/26/20 07:33 History of Present Illness HPI narrative: 50F smoker without significant medical history presents with a bee sting to her R elbow last night. She has no systemic symptoms such as facial/lip/tongue swelling and no trouble swallowing or breathing. She does NOT have a history of allergic reactions. She has had a small increase in the redness surrounding the sting and is concerned. Related Data Previous Rx's Medication Instructions Recorded duloxetine 60 mg capsule,delayed 60 mg PO DAILY #90 cap 06/28/19 release meclizine 25 mg tablet 25 mg PO TID PRN #90 tab 05/31/20 dicyclomine 10 mg capsule 10 mg PO TID PRN #30 cap 07/16/20 Allergies Allergy/AdvReac Type Severity Reaction Status Date / Time moxifloxacin [From AVELOX] Allergy Unknown Hives Verified 07/29/20 07:31 Review of Systems Review of Systems Narrative: GENERAL: Denies chills, fatigue, malaise, fever, sweats. HEENT: Denies sinus pain, ear pain, sore throat, difficulty swallowing, diz ziness. RESPIRATORY: Denies dyspnea, cough, wheezing, hemoptysis, sputum. CARDIOVASCULAR: Denies chest pain, palpitations, orthopnea, edema, GASTROINTESTINAL: Denies nausea, vomiting, abdominal pain, diarrhea, constipation, melena. : Denies dysuria, frequency, incontinence, hematuria, urinary retention. MUSCULOSKELETAL: denies weakness, joint pain, or bony pain SKIN: See HPI NEUROLOGIC: Denies weakness, headache, numbness, change in speech, confusion, seizures, incoordination. PSYCHIATRIC: No concerning psychosocial issues. 12 point review of systems is negative except for those stated above Patient History Medical History Allergies (~2001) Anemia (~2007) Anxiety (~2007) Chicken pox (~1973) Depression (~2007) Left ankle sprain (~2007) Migraines (~2007) Restless leg syndrome (~2007) Vision disorder Surgical History Anesthesia History of tubal ligation (~1997) Status post trigger finger release (~2013) Family History Father Hypertension Hyperlipidemia Mental health problem Stroke Mother History of heart surgery Brother Mental health problem Sister Mental health problem Grandfather Mental health problem Grandmother Cancer Mental health problem Grandfather Mental health problem Grandmother Mental health problem Social History household members: none Smoking Status: Current some day smoker alcohol intake: never substance use type: does not use Smoking Status: Current some day smoker alcohol intake frequency: 0-2 drinks per day Substance Use Type: does not use Exam Narrative Exam Narrative: GEN: AOx3 and in mild distress EYES: Pupils are equal, round, and reactive to light and accommodation. Extraoccular muscles are intact bilaterally. There is no subconjunctival hemorrhage or exudate. ENT: No facial swelling, lip swelling, tongue swelling or perceived difficulty in breathing CHEST: Lungs are clear to auscultation bilaterally and free of wheezes, rales, or rhonchi. Heart rate is regular rhythm, there are no murmurs, clicks, rubs, or gallops. There is no chest wall tenderness. ABD: Abdomen is soft and nontender. There is no guarding or rebound. Bowel sounds are normal in all 4 quadrants. There is no mass or organomegaly. EXT: Full painless ROM of all extremities with no loss of sensation or strength. SKIN: Area erythema and warmth with pruritus on right medial elbow, no induration, fluctuance or lymphangitis MDM - Allergic Reaction MDM Narrative Medical decision making narrative: Patient with a localized bee sting and no evidence of systemic findings such as facial swelling, trouble swallowing or breathing. No widespread hives. Sh very localized reaction, no suggestion of superinfection. Return precautions given and questions answered to her apparent satisfaction Discharge Plan Departure Patient Disposition: Home Clinical Impression: Accidental bee sting Activity Restrictions/Additional Instructions: *You have been diagnosed with [bee sting with localized reaction ] *What to do: *Please continue to take your regular medications as directed. [ ]Consider over the counter medications such as antihistamines (Benadryl, Zyrtec, Claritin) and topical lotions like Hydrocortisone *Please follow up with your primary care provider in 2-3 days, call for an appointment. Let them know you were seen in the Emergency Department and that we ask that you be seen in follow up. We will electronically transmit a record of today's note if your PCP is in our system *If you do not have a primary care provider please contact the [facility] Resource line at [phone]. They will ask some questions about your medical history and help get you set up with a doctor in the community. *Return to Emergency Department if you should have any new, worsening or concerning symptoms, such as [fever greater than 101 F, shaking chills, worsening pain, persistent vomiting or other bothersome symptoms] Prescriptions: No Action meclizine 25 mg tablet 25 mg PO TID PRN (Reason: dizziness) Qty: 90 RF: 2 duloxetine 60 mg capsule,delayed release(DR/EC) 60 mg PO DAILY Qty: 90 RF: 1 dicyclomine 10 mg capsule 10 mg PO TID PRN (Reason: Intestinal cramping) Qty: 30 RF: 1 Referrals: Abdiel Nuno, [Primary Care Provider] -
[2020-12-26 07:43] VITALS: BP 152/73; PULSE 87; RESP 18; O2SAT 99; BMI 23.1
== END 2020-12-26 07:53 | disposition home or self-care (01) ==
PROVIDERS: Emergency Provider Emergency Medicine; PCP Family Medicine
DX: T63.441A Toxic effect of venom of bees, accidental (unintentional), initial encounter (principal)
CPT/HCPCS: 99281

== ENCOUNTER 2021-03-06 18:13 | Emergency (ER) | payer OTHER, MEDICAID, SELFPAY ==
[2021-03-06 18:35] VITALS: BP 145/73; PULSE 86; RESP 18; TEMP 36.2; O2SAT 100; BMI 23.1
--- NOTE | 2021-03-06 22:35 | ED.SKABFB ---
HPI - Skin/Abscess/Foreign Bdy General Chief complaint: Skin/Abscess/Foreign Body Stated complaint: Both Feet Swollen and Covered in Rash Time Seen by Provider: 03/06/21 22:25 Source: patient Mode of arrival: Ambulatory Limitations: no limitations History of Present Illness HPI narrative: This is a 50-year-old female comes with complaint of both her feet being low bit swollen and having a rash patient states [place] was [place] the beach [place]. She had some cuts. She was concerned she may have developed infection. It is not painful. It is non itchy. Has not been flaking or scaling. There have any raised bumps. Patient did notice she has had a little bit of swelling since then. She has not had that problem in the past. She denies fevers or chills. No chest pain or shortness of breath. No cold cough or congestion. No nausea or vomiting. No other GI or urinary symptoms. No numbness or tingling. Patient denies any daily medications. No known medical issues. Prior surgeries include tubal ligation. She does smoke occasional alcohol but not regular frequently. She denies any illicit. No IV or injectable drugs. Related Data Previous Rx's Medication Instructions Recorded duloxetine 60 mg capsule,delayed 60 mg PO DAILY #90 cap 06/28/19 release meclizine 25 mg tablet 25 mg PO TID PRN #90 tab 05/31/20 dicyclomine 10 mg capsule 10 mg PO TID PRN #30 cap 07/16/20 clindamycin HCl 300 mg capsule 300 mg PO QID #30 cap 03/06/21 Allergies Allergy/AdvReac Type Severity Reaction Status Date / Time moxifloxacin [From AVELOX] Allergy Unknown Hives Verified 07/29/20 07:31 Review of Systems Review of Systems ROS Unobtainable: All systems reviewed & are unremarkable except as noted in HPI and below Patient History Medical History (Updated 03/06/21 @ 22:42 by Brigida Jones DO) Allergies (~2001) Anemia (~2007) Anxiety (~2007) Chicken pox (~1973) Depression (~2007) Left ankle sprain (~2007) Migraines (~2007) Restless leg syndrome (~2007) Vision disorder Surgical History Anesthesia History of tubal ligation (~1997) Status post trigger finger release (~2013) Family History Father Hypertension Hyperlipidemia Mental health problem Stroke Mother History of heart surgery Brother Mental health problem Sister Mental health problem Grandfather Mental health problem Grandmother Cancer Mental health problem Grandfather Mental health problem Grandmother Mental health problem Social History household members: none Smoking Status: Current some day smoker alcohol intake: never substance use type: does not use Smoking Status: Current some day smoker alcohol intake frequency: 0-2 drinks per day Substance Use Type: does not use Exam Narrative Exam Narrative: GENERAL: Alert and oriented x three, female in mild distress. HEENT: Head normocephalic, atraumatic, EOMI, pupils reactive, face symmetric, moist mucous membranes NECK: Supple, full range of motion CARDIOVASCULAR: Regular rate and rhythm without murmurs, rubs or gallops. RESPIRATORY: Breath sounds equal bilaterally, no wheezes rales or rhonchi. ABDOMEN: Soft, nontender. Normoactive bowel sounds all 4 quadrants. No guarding or rebound, rigidity, no mass : No CVA tenderness EXTREMITIES: Normal range of motion, no clubbing. Patient has 1+ edema bilateral lower extremities in dorsum of her feet and ankles. Skin appears intact. There is an erythematous short punctate rash encircling the ankles. There is no obvious skin breakdown or open wounds there is some slight warmth to the area. There is no vesicles there is no raised wheals or other similar changes. There is no obvious pattern. NEUROLOGICAL: Cranial nerves II through XII grossly intact. Moving all extremities SKIN: Warm, dry, no petechiae. Initial Vital Signs Initial Vital Signs: Vital Signs Temperature 97.1 F L 03/06/21 18:35 Pulse Rate 86 03/06/21 18:35 Respiratory Rate 18 03/06/21 18:35 Blood Pressure 145/73 H 03/06/21 18:35 Pulse Oximetry 100 03/06/21 18:35 Course Orders Ordered: Discontinued Medications Clindamycin HCl (Clindamycin 150 Mg Capsule) 300 mg PO NOW ONE Stop: 03/06/21 22:43 Last Admin: 03/06/21 22:50 Dose: 300 mg Documented by: RAMÓN Vital Signs Vital signs: Vital Signs - 8 hr 03/06/21 18:35 Temperature 97.1 F L Pulse Rate 86 Respiratory Rate 18 Blood Pressure 145/73 H Pulse Oximetry 100 MDM - Skin/Abscess/Foreign Bdy MDM Narrative Medical decision making narrative: Discussed with patient may be cellulitis although the pattern is a bit atypical. Does not appear to be an obvioue skin reaction, contact dermatitis or allergic reaction. Patient was offered further workup with labs and evaluation but she defers. Try a short course of oral antibiotic. Time and re-evaluation. She has a follow-up appointment this coming with her primary care. Discharge Plan Departure Patient Disposition: Home Clinical Impression: Edema of both ankles, Ankle cellulitis Activity Restrictions/Additional Instructions: You may have an infection in your skin but it is an atypical pattern. It is possible you may have had a reaction to something that you were in contact with but your rash does not look like a typical contact dermatitis or allergic reaction. You may take antibiotics until completely gone. Prescription sent [facility]. Please return for new or worsening swelling, increasing redness, redness spreading up your extremities, numbness, tingling, significant color changes, new chest pain or shortness of breath, fevers, nausea vomiting or other new or concerning symptoms. Prescriptions: New clindamycin HCl 300 mg capsule 300 mg PO QID Qty: 30 RF: 0 No Action meclizine 25 mg tablet 25 mg PO TID PRN (Reason: dizziness) Qty: 90 RF: 2 duloxetine 60 mg capsule,delayed release(DR/EC) 60 mg PO DAILY Qty: 90 RF: 1 dicyclomine 10 mg capsule 10 mg PO TID PRN (Reason: Intestinal cramping) Qty: 30 RF: 1 Referrals: Abdiel Nuno DO [Primary Care Provider] -
[2021-03-06] MEDS: CLINDAMYCIN 150 MG CAPSULE 300 MG PO (22:50)
== END 2021-03-06 22:54 | disposition home or self-care (01) ==
PROVIDERS: Emergency Provider Emergency Medicine; PCP Family Medicine
DX: R60.0 Localized edema (principal); L03.116 Cellulitis of left lower limb; L03.115 Cellulitis of right lower limb
CPT/HCPCS: 99283

== ENCOUNTER → 2021-03-07 10:01 | Outpatient (CLI) | payer OTHER, MEDICAID, SELFPAY ==
[2021-03-07 12:57] LABS: COVID19 -Nasal RAPID Negative (Negative)
== END ==
PROVIDERS: PCP Family Medicine; Referring Provider Nurse Practitioner; Visit Provider Nurse Practitioner
DX: Z20.822 Contact with and (suspected) exposure to COVID-19 (principal); R09.89 Other specified symptoms and signs involving the circulatory and respiratory systems; R11.0 Nausea; R51.9 Headache, unspecified
CPT/HCPCS: 87635

== ENCOUNTER → 2021-03-13 16:07 | Outpatient (CLI) | payer OTHER, MEDICAID, SELFPAY ==
[2021-03-16 11:32] LABS: COVID19 Sendout Not Detected (Not Detect)
== END ==
PROVIDERS: PCP Family Medicine; Visit Provider Registered Nurse
DX: Z20.822 Contact with and (suspected) exposure to COVID-19 (principal)
CPT/HCPCS: 87635

== ENCOUNTER → 2021-03-13 16:39 | Outpatient (CLI) | payer OTHER, MEDICAID, SELFPAY ==
--- NOTE | 2021-03-13 16:42 | DI.RAD.S_ITS ---
PROCEDURE: XR CHEST 2V INDICATIONS: sob; resp. infection TECHNIQUE: 2 views of the chest were acquired. COMPARISON: [facility], CR, XR CHEST 1V, 09/26/2017, 15:01. FINDINGS: Surgical changes and devices: None. Lungs and pleura: Lungs are clear. No pleural effusions or pneumothorax. Mediastinum: Mediastinal contours are normal. Heart size is normal. Bones and chest wall: No suspicious bony abnormalities. Soft tissues appear unremarkable. IMPRESSION: No acute cardiopulmonary disease. Dictated by: Anthony Sandoval Braden Interpreted: Ag Pryor MD on 03/13/2021 at 17:00 Transcribed by: LOLA on 03/13/2021 at 17:01 Approved by: Ag Proyr M.D. on 03/13/2021 at 17:02
== END ==
PROVIDERS: PCP Family Medicine; Referring Provider Registered Nurse; Visit Provider Registered Nurse
DX: R06.02 Shortness of breath (principal); J98.8 Other specified respiratory disorders; Z20.822 Contact with and (suspected) exposure to COVID-19
CPT/HCPCS: 71046; 87635

== ENCOUNTER 2021-05-17 05:55 | Emergency (ER) | payer OTHER, MEDICAID, SELFPAY ==
[2021-05-17 06:15] VITALS: BP 147/77; PULSE 79; RESP 18; TEMP 36.7; O2SAT 100; BMI 23.1
--- NOTE | 2021-05-17 06:19 | ED_ITS ---
HPI - Abdominal Pain General Chief Complaint: Abdominal Pain Stated Complaint: left side pain itchy and numb Time Seen by Provider: 05/17/21 06:12 Source: patient Mode of arrival: Ambulatory History of Present Illness HPI narrative: Patient is a 50-year-old female who presents with sudden onset of his left upper flank pain. She says it is constant pain with waves of intense pain. No nausea or vomiting. It radiates from her back to her abdomen but not necessarily down to her groin. No prior history of kidney stones. She denies any chest pain palpitations or shortness of breath. She has had some body aches she has upper respiratory like symptoms in well is including nasal congestion mild sore throat. She is vaccinated for COVID. Related Data Previous Rx's Medication Instructions Recorded duloxetine 60 mg capsule,delayed 60 mg PO DAILY #90 cap 06/28/19 release meclizine 25 mg tablet 25 mg PO TID PRN #90 tab 05/31/20 dicyclomine 10 mg capsule 10 mg PO TID PRN #30 cap 07/16/20 clindamycin HCl 300 mg capsule 300 mg PO QID #30 cap 03/06/21 hydrocodone 5 mg-acetaminophen 325 1 tab PO Q6H PRN #10 tab 05/17/21 mg tablet Allergies Allergy/AdvReac Type Severity Reaction Status Date / Time moxifloxacin [From AVELOX] Allergy Unknown Hives Verified 03/13/21 16:02 Review of Systems Review of Systems Narrative: GENERAL: Denies chills, fatigue, malaise, fever, sweats, travel HEENT: Denies sinus pain, ear pain, sore throat, difficulty swallowing, neck pain RESPIRATORY: Denies dyspnea, cough, wheezing, hemoptysis, sputum. CARDIOVASCULAR: Denies chest pain, palpitations, orthopnea, edema GASTROINTESTINAL: See HPI : Denies dysuria, frequency, incontinence, hematuria, urinary retention, flank pain. MUSCULOSKELETAL: Denies weakness, joint pain, or bony pain SKIN: No rash, no erythema, no pruritus NEUROLOGIC: Denies weakness, dizziness, headache, numbness, change in speech, confusion PSYCHIATRIC: No concerning psychosocial issues. 12 point review of systems is negative except for those stated above and HPI Patient History Medical History (Updated 05/17/21 @ 07:19 by Kasandra Barahona DO) Allergies (~2001) Anemia (~2007) Anxiety (~2007) Chicken pox (~1973) Depression (~2007) Left ankle sprain (~2007) Migraines (~2007) Restless leg syndrome (~2007) Sinusitis Vision disorder Surgical History Anesthesia History of tubal ligation (~1997) Status post trigger finger release (~2013) Family History Father Hypertension Hyperlipidemia Mental health problem Stroke Mother History of heart surgery Brother Mental health problem Sister Mental health problem Grandfather Mental health problem Grandmother Cancer Mental health problem Grandfather Mental health problem Grandmother Mental health problem Social History household members: none Smoking Status: Current some day smoker alcohol intake: never substance use type: does not use Smoking Status: Current some day smoker alcohol intake frequency: 0-2 drinks per day Substance Use Type: does not use Exam Initial Vital Signs Initial Vital Signs: Vital Signs Temperature 98.1 F 05/17/21 06:15 Pulse Rate 79 05/17/21 06:15 Respiratory Rate 18 05/17/21 06:15 Blood Pressure 147/77 H 05/17/21 06:15 Pulse Oximetry 100 05/17/21 06:15 GENERAL: Alert 50-year-old female appears in pain in no acute distress. HEENT: Head atraumatic,EOMI, pupils reactive, face symmetric, moist mucous membranes CARDIOVASCULAR: Regular rate and rhythm without murmurs, rubs or gallops. RESPIRATORY: Breath sounds equal bilaterally, no wheezes rales or rhonchi. ABDOMEN: Soft, tender left upper quadrant pain minimal epigastric pain no right upper quadrant pain EXTREMITIES: Normal range of motion, no clubbing or edema. Neurovascularly intact NEUROLOGICAL: Alert and oriented x4.Normal gait and speech. SKIN: Warm, dry, no laceration, no petechiae, no rashes or lesions. Course Orders Ordered: Discontinued Medications Hydrocodone Bitart/Acetaminophen (Hydrocodone/Acet 5/325 Prepack) 1 bottle MISC SEEINSTR ONE Stop: 05/17/21 07:21 Last Admin: 05/17/21 07:33 Dose: 1 bottle Documented by: DINA Ketorolac Tromethamine (Ketorolac 30 Mg/Ml Vial) 30 mg IV NOW ONE Stop: 05/17/21 06:33 Last Admin: 05/17/21 06:40 Dose: 30 mg Documented by: OSKAR Morphine Sulfate (Morphine 4 Mg/Ml Inj) 4 mg IV NOW ONE Stop: 05/17/21 07:21 Last Admin: 05/17/21 07:33 Dose: 4 mg Documented by: DINA Vital Signs Vital signs: Vital Signs - 8 hr 05/17/21 06:15 05/17/21 06:47 Temperature 98.1 F Pulse Rate 79 71 Respiratory Rate 18 22 Blood Pressure 147/77 H Pulse Oximetry 100 100 MDM - Abdominal Pain Lab Data Result diagrams: 05/17/21 06:33 05/17/21 06:33 Labs: Lab Results 05/17/21 05/17/21 05/17/21 Range/Units 06:12 06:33 06:33 WBC 6.8 (4.5-11.0) X10^3/uL RBC 4.84 (4.0-5.2) X10^6/uL Hgb 14.4 (12.0-16.0) g/dL Hct 42.5 (36-46) % MCV 87.8 (80-100) fL MCH 29.7 (26-34) PG MCHC 33.8 (30-36) % RDW 13.0 (11.6-14.8) % Plt Count 287 (150-400) X10^3/uL Neut % (Auto) 55.1 (50-75) % Lymph % (Auto) 35.3 (25-40) % [place] % (Auto) 7.2 (3-14) % Eos % (Auto) 1.6 L (2-4) % Baso % (Auto) 0.8 (0-2) % Neut # (Auto) 3700 (4101-5536) /uL Lymph # (Auto) 2400 (8528-5652) /uL [place] # (Auto) 500 (0-900) /uL Eos # (Auto) 100 (0-450) /uL Baso # (Auto) 100 (0-100) /uL Sodium 141 (137-145) mmol/L Potassium 4.0 (3.4-5.1) mmol/L Chloride 106 (98-107) mmol/L Carbon Dioxide 31 (22-32) mmol/L BUN 16 (7-17) mg/dL Creatinine 0.68 (0.52-1.04) mg/dL Estimated GFR > 60.0 (>60) mL/min BUN/Creatinine Ratio 23.5 H (6-22) Glucose 88 (70-100) mg/dL Calcium 9.9 (8.4-10.2) mg/dL Total Bilirubin 0.3 (0.2-1.3) mg/dL AST 34 (14-36) IU/L ALT 26 (<35) IU/L Alkaline Phosphatase 66 (38-126) U/L Total Protein 7.7 (6.3-8.2) g/dL Albumin 4.6 (3.5-5.0) g/dL Globulin 3.1 (1.7-4.1) g/dL Albumin/Globulin Ratio 1.5 (1.0-2.8) Lipase 164 (23-300) U/L SARS-CoV-2 (PCR) Negative (Negative) Point of care testing: Urine Dip Bedside Urine Glucose Negative Bedside Urine Bilirubin - Negative Bedside Urine Ketone - Negative Urine Specific [place] 1.015 Bedside Urine Occult Blood +/- Bedside Urine pH 8.0 Bedside Urine Protein - Negative Bedside Urine Urobilinogen - Negative Bedside Urine Nitrite - Negative Bedside Urine Leukocytes - Negative Esterase Imaging Data CT scan - abdomen/pelvis: Radiologist's Impression: The preliminary report: Nonobstructing stone left kidney 2 mm Discharge Plan Departure Patient Disposition: Home Clinical Impression: Kidney stone on left side Instructions: Kidney Stones -- Adult Activity Restrictions/Additional Instructions: * You've been diagnosed with kidney stone * What to do: Increase fluid intake, Strain urine, try to catch stone * Please follow-up with your primary care provider in the next 2-3 days, you may require urology consultation please discuss this with -If you should have fever, or pain is uncontrolled with medication at home or any other concerning symptoms return to ER for further evaluation MEDICATIONS Take Motrin 800 mg every 8 hours as needed for pain Take [place] every 6 hours if needed for severe pain--> [facility] CONTROLLED SUBSTANCE DISCHARGE (Narcotoic/benzodiazepine) 1. You have been prescribed narcotic medications, it does have acetaminophen/Tylenol/paracetamol in it so do not take extra Tylenol or Tylenol containing products 2. Please understand that we cannot provide further refills of narcotics, benzodiazepines or controlled substances through the ED and her pain management will need to be through your provider. 3. While on these medications you cannot drive or operate heavy machinery. 4. You cannot sign legal documents or perform any duties such as this. 5. As long as you're taking opiate pain medications he should also be taking a stool softener such as Colace, Dulcolax, MiraLAX or prune juice, to help avoid constipation. Prescriptions: New hydrocodone-acetaminophen 5-325 mg tablet 1 tab PO Q6H PRN (Reason: pain) Qty: 10 0RF No Action meclizine 25 mg tablet 25 mg PO TID PRN (Reason: dizziness) Qty: 90 2RF duloxetine 60 mg capsule,delayed release(DR/EC) 60 mg PO DAILY Qty: 90 1RF dicyclomine 10 mg capsule 10 mg PO TID PRN (Reason: Intestinal cramping) Qty: 30 1RF Rx Instructions: Take for intestinal cramping clindamycin HCl 300 mg capsule 300 mg PO QID Qty: 30 0RF Referrals: Abdiel Nuno, [Primary Care Provider] -
--- NOTE | 2021-05-17 06:32 | DI.CT.S_ITS ---
PROCEDURE: CT KIDNEY URETER BLADDER (KUB) INDICATIONS: left flank pain TECHNIQUE: Axial sections were acquired from the lung bases to the pubic symphysis. Coronal and sagittal reformats were performed. For radiation dose reduction, the following was used: automated exposure control, adjustment of mA and/or kV according to patient size. COMPARISON: None. FINDINGS: Image quality: Excellent. Lung bases: Lung bases are clear. Heart size is normal. Solid organs: Liver: The liver has no mass or intrahepatic biliary ductal dilatation. The portal vein and hepatic veins are patent. Biliary: The gallbladder has no gallstones, pericholecystic fluid, gallbladder wall thickening, or surrounding inflammatory change. Pancreas: The pancreas has no mass or ductal dilatation. There is no surrounding inflammation. Spleen: Normal size. There are no masses. Adrenals: No hypertrophy or nodules. Kidneys: The left kidney has a punctate calcification in the inferior pole. No solid mass. No cystic mass. Peritoneum and bowel: The distal esophagus and stomach are normal. The small bowel has a normal caliber and appearance. The terminal ileum is normal. The large bowel has constipation. No free fluid or air. Nodes and vessels: No retroperitoneal or mesenteric adenopathy by size criteria. Aorta and inferior vena cava are normal in size. Miscellaneous: No abdominal wall mass or hernia. PELVIS: Genitourinary: The bladder has no wall thickening or mass. No bladder calcifications. Bones: No suspicious bony lesions. No vertebral body compression fractures. IMPRESSION: 1. No acute abdominal or pelvic abnormality. 2. Nonobstructing stone in the left kidney. 3. Moderate stool in the sigmoid colon with sigmoid diverticulosis. Comment: Final report is concordant with preliminary interpretation by [facility] Dictated by: Sherif Birmingham M.D. on 05/17/2021 at 7:15 Approved by: Sherif Birmingham M.D. on 05/17/2021 at 7:19
[2021-05-17] MEDS: KETOROLAC 30 MG/ML VIAL IV (06:40)
[2021-05-17 06:43] LABS: Add Manual Diff / Slide Review NO; Basophils Absolute Auto 100 /uL (0-100); Basophils Percent Auto 0.8 % (0-2); Eosinophils Absolute Auto 100 /uL (0-450); Eosinophils Percent Auto 1.6 % (2-4); Hematocrit 42.5 % (36-46); Hemoglobin 14.4 g/dL (12.0-16.0); Lymphocytes Absolute Auto 2400 /uL (1100-4500); Lymphocytes Percent Auto 35.3 % (25-40); Mean Corpuscular HGB Conc 33.8 % (30-36); Mean Corpuscular Hemoglobin 29.7 PG (26-34); Mean Corpuscular Volume 87.8 fL (80-100); Monocytes Absolute Auto 500 /uL (0-900); Monocytes Percent Auto 7.2 % (3-14); Neutrophils Absolute Auto 3700 /uL (1500-7000); Neutrophils Percent Auto 55.1 % (50-75); Platelet Count 287 X10^3/uL (150-400); Red Blood Cell Count 4.84 X10^6/uL (4.0-5.2); White Blood Cell Count 6.8 X10^3/uL (4.5-11.0)
[2021-05-17 06:47] VITALS: PULSE 71; RESP 22; O2SAT 100
[2021-05-17 06:55] LABS: Alanine Aminotransferase 26 IU/L (<35); Albumin 4.6 g/dL (3.5-5.0); Albumin Globulin Ratio 1.5 (1.0-2.8); Alkaline Phosphatase 66 U/L (38-126); Aspartate Aminotransferase 34 IU/L (14-36); BUN Creatinine Ratio 23.5 (6-22); Bilirubin Total 0.3 mg/dL (0.2-1.3); Blood Urea Nitrogen 16 mg/dL (7-17); Calcium 9.9 mg/dL (8.4-10.2); Carbon Dioxide 31 mmol/L (22-32); Chloride 106 mmol/L (98-107); Estimated Glomerular Filt Rate > 60.0 mL/min (>60); Globulin 3.1 g/dL (1.7-4.1); Glucose 88 mg/dL (70-100); HEMOLYSIS < 15 (0-50); Lipase 164 U/L (23-300); Sodium 141 mmol/L (137-145); Total Protein 7.7 g/dL (6.3-8.2)
[2021-05-17 07:10] LABS: COVID19 -Nasal RAPID Negative (Negative)
[2021-05-17] MEDS: HYDROCODONE/ACET 5/325 PREPACK 1 BOTTLE MISC (07:33)
[2021-05-17] MEDS: MORPHINE 4 MG/ML INJ IV (07:33)
[2021-05-17 08:12] VITALS: BP 130/66; PULSE 78; RESP 18; O2SAT 99
== END 2021-05-17 08:14 | disposition home or self-care (01) ==
PROVIDERS: Emergency Provider Emergency Medicine; PCP Family Medicine
DX: N20.0 Calculus of kidney (principal); R09.81 Nasal congestion; J02.9 Acute pharyngitis, unspecified; F17.200 Nicotine dependence, unspecified, uncomplicated; Z20.822 Contact with and (suspected) exposure to COVID-19
CPT/HCPCS: 36415; 74176; 80053; 81003; 83690; 85025; 87635; 96374; 96375; 99284; C9803; J1885; J2270

== ENCOUNTER → 2021-11-28 16:06 | Outpatient (CLI) | payer OTHER, MEDICAID, SELFPAY ==
[2021-11-28 18:02] LABS: Appearance Urine UA CLEAR; Bilirubin Urine UA NEGATIVE (NEGATIVE); Color Urine UA YELLOW; Glucose Urine UA NEGATIVE (Negative); Ketones Urine UA NEGATIVE (NEGATIVE); Leukocyte Esterase Urine UA NEGATIVE (NEGATIVE); Nitrite Urine UA NEGATIVE (Negative); Occult Blood Urine UA 1+ (Negative); Protein Urine UA TRACE (Negative); Specific Gravity Urine UA 1.025 (1.000-1.035); Urobilinogen Urine UA 0.2 E.U./dL (0.2)
[2021-11-28 18:23] LABS: Amorphous Sediment Urine 1+; Bacteria Urine None Seen; RBC Urine 0-1/HPF (0-5/HPF); Squamous Epithelial Cell Urine 0-1 /HPF (0-5/HPF); WBC Urine 0-1/HPF (0-5/HPF); pH Urine UA 5.5 (4.5-8.0)
[2021-11-28 18:24] LABS: Culture Indicated Urine Cult Not Indicated; Mucus Urine 1+ (Negative)
[2021-11-28 19:31] LABS: Urine N gonorrhoeae NOT DETECTED
[2021-11-28 19:33] LABS: Urine Chlamydia NOT DETECTED
== END ==
PROVIDERS: PCP Family Medicine; Referring Provider Family Medicine; Visit Provider Family Medicine
DX: N89.8 Other specified noninflammatory disorders of vagina (principal)
CPT/HCPCS: 81001; 87491; 87591

== ENCOUNTER 2021-12-30 23:45 | Emergency (ER) | payer OTHER, MEDICAID, SELFPAY ==
[2021-12-31 00:13] VITALS: BP 119/81; PULSE 78; RESP 20; TEMP 36.6; O2SAT 99
== END 2021-12-31 02:18 | disposition left against medical advice (07) ==
PROVIDERS: Emergency Provider Emergency Medicine; PCP Family Medicine
CPT/HCPCS: 99281

== ENCOUNTER 2023-06-30 17:03 | Emergency (ER) | payer OTHER, MEDICAID, SELFPAY ==
[2023-06-30 17:05] VITALS: BP 134/85; PULSE 85; RESP 16; TEMP 36.6; O2SAT 98; BMI 23.1
--- NOTE | 2023-06-30 17:15 | DI.RAD.S_ITS ---
PROCEDURE: XR ANKLE RT MIN 3V INDICATIONS: Kicked cart with resulting pain and swelling. TECHNIQUE: 3 views of the ankle were acquired. COMPARISON: [facility], CR, XR FOOT RT MIN 3V, 06/30/2023, 17:25. FINDINGS: Bones: No fractures or dislocations. Ankle mortise is normally aligned. No suspicious bony lesions. Mild osteoarthritic changes. Calcaneal spurring. Soft tissues: No tibiotalar joint effusion. Achilles tendon appears normal. IMPRESSION: No acute bony abnormality or significant effusion. Dictated by: Dennis Hampton M.D. on 06/30/2023 at 18:34 Approved by: Dennis Hampton M.D. on 06/30/2023 at 18:35
--- NOTE | 2023-06-30 17:15 | DI.RAD.S_ITS ---
PROCEDURE: XR FOOT RT MIN 3V INDICATIONS: Kicked cart with resulting pain and swelling. TECHNIQUE: 3 views of the foot were acquired. COMPARISON: [facility], , FOOT 3V RIGHT, 10/19/2006, 8:30. FINDINGS: Bones: No fractures or dislocations. Old healed 1st proximal phalangeal fracture. No suspicious bony lesions. Mild osteoarthritic changes in ankle and foot. Calcaneal spurring. Bipartite medial sesamoid. Soft tissues: Trace tibiotalar joint effusion. Achilles tendon appears normal. IMPRESSION: No acute bony abnormality. Dictated by: Dennis Hampton M.D. on 06/30/2023 at 18:35 Approved by: Dennis Hampton M.D. on 06/30/2023 at 18:37
--- NOTE | 2023-06-30 17:26 | ED.LOWEXIN ---
HPI - Extremity Injury (Lower) <Nancy Thomas PA-C - Last Filed: 06/30/23 18:17> General Chief Complaint: Extremity Injury, Lower Stated Complaint: rt ankle injury Time Seen by Provider: 06/30/23 17:15 Source: patient Mode of arrival: Ambulatory History of Present Illness HPI Narrative: 53-year-old woman with history of previous foot injury, reports fracture around 2001 with multiple breaks with no surgery presents today with concern for right ankle pain and right foot pain. She states yesterday she turned suddenly and accidentally kicked a heavy wheeled cart and her outer ankle smashed against it causing pain. She also thinks that she may have smashed outside of her foot on it as well. She states that she did ambulate on it after this but when she got home yesterday evening she iced it and elevated it. She did this again this morning but had to go to work today and was on her feet most of the day at work and it has been increasingly painful she has also noticed some tingling sensation in her toes and the outside of her foot. She states a co-worker accidentally kicked her ankle today as well which exacerbated her pain. She has been walking on it and states she took 2 ibuprofen this morning. She denies any other complaints or concerns or injuries Related Data Previous Rx's Medication Instructions Recorded meclizine 25 mg tablet 25 mg PO TID PRN dizziness #90 tabs 05/31/20 metronidazole 500 mg tablet 500 mg PO BID #14 tabs 11/28/21 Allergies Allergy/AdvReac Type Severity Reaction Status Date / Time moxifloxacin [From AVELOX] Allergy Unknown Hives Verified 11/28/21 15:43 Review of Systems <Nancy Thomas PA-C - Last Filed: 06/30/23 18:17> Review of Systems Narrative: See HPI Patient History <Nancy Thomas PA-C - Last Filed: 06/30/23 18:17> Medical History Vaginal discharge Zoster Nephrolithiasis Sinusitis Vision disorder Allergies (~2001) Anxiety (~2007) Restless leg syndrome (~2007) Migraines (~2007) Chicken pox (~1973) Anemia (~2007) Depression (~2007) Left ankle sprain (~2007) Surgical History Anesthesia Status post trigger finger release (~2013) History of tubal ligation (~1997) Family History Father Hypertension Hyperlipidemia Mental health problem Stroke Mother History of heart surgery Brother Mental health problem Sister Mental health problem Grandfather Mental health problem Grandmother Cancer Mental health problem Grandfather Mental health problem Grandmother Mental health problem Social History household members: none Smoking Status: Current some day smoker alcohol intake: never substance use type: does not use Smoking Status: Current some day smoker alcohol intake frequency: 0-2 drinks per day Substance Use Type: marijuana Exam <Nancy Thomas PA-C - Last Filed: 06/30/23 18:17> Narrative Exam Narrative: GENERAL: [53] year old patient appears stated age. Well-developed patient, in mild distress. HEAD: Atraumatic. Normocephalic. EYES: Pupils equal round and reactive. Extraocular motions intact. No scleral icterus. No injection or drainage. ENT: Nose without bleeding, purulent drainage. Airway patent. NECK: Trachea midline. Non tender CARDIOVASCULAR: Regular rate and rhythm without murmurs, gallops, or rubs. RESPIRATORY: Clear to auscultation. Breath sounds equal bilaterally. No wheezes, rales, or rhonchi. EXTREMITIES: There is [id number] swelling about the right ankle on the lateral aspect, there is tenderness of the lateral malleolus, patient also has tenderness over the ATFL and Calcaneofibular ligament, she has reduced range of motion at the toes and ankle 2nd to pain. Patient does have some tenderness over the proximal and mid shaft 5th metatarsal. no erythema or broken skin noted. No other edema or joint tenderness. NEURO: AOx3. SKIN: No rash or erythema of visible areas Initial Vital Signs Initial Vital Signs: Vital Signs Temperature 98 F 06/30/23 17:05 Pulse Rate 85 06/30/23 17:05 Respiratory Rate 16 06/30/23 17:05 Blood Pressure 134/85 06/30/23 17:05 Pulse Oximetry 98 02/07/24 17:05 Oxygen Delivery Method Room Air 06/30/23 17:05 <Brigida Day MD - Last Filed: 06/30/23 18:21> Initial Vital Signs Initial Vital Signs: Vital Signs Temperature 98 F 06/30/23 17:05 Pulse Rate 85 06/30/23 17:05 Respiratory Rate 16 06/30/23 17:05 Blood Pressure 134/85 06/30/23 17:05 Pulse Oximetry 98 06/30/23 17:05 Oxygen Delivery Method Room Air 06/30/23 17:05 Course <Nancy Thomas PA-C - Last Filed: 06/30/23 18:17> Orders Ordered: ED Orders 06/30/23 17:15 XR ankle RT min 3V Stat XR foot RT min 3V Stat Vital Signs Vital signs: Vital Signs - 8 hr 06/30/23 17:05 06/30/23 17:29 Temperature 98 F Pulse Rate 85 Pulse Rate [Right Dorsalis Pedis] 86 Respiratory Rate 16 Blood Pressure 134/85 Pulse Oximetry 98 Oxygen Delivery Method Room Air <Brigida Day MD - Last Filed: 06/30/23 18:21> Orders Ordered: ED Orders 06/30/23 17:15 XR ankle RT min 3V Stat XR foot RT min 3V Stat Vital Signs Vital signs: Vital Signs - 8 hr 06/30/23 17:05 06/30/23 17:29 Temperature 98 F Pulse Rate 85 Pulse Rate [Right Dorsalis Pedis] 86 Respiratory Rate 16 Blood Pressure 134/85 Pulse Oximetry 98 Oxygen Delivery Method Room Air MDM - Extremity Injury (Lower) <CHANELLE Head Last Filed: 06/30/23 18:17> Differential Diagnosis Differential diagnosis: Likely ankle sprain and strain, ankle fracture and other (Foot sprain strain, fracture) Medical Records Attestation: I reviewed the patient's medical records. Imaging Data Extremity x-ray #1: My Impression: Imaging results from radiology had not returned at time of discharge however this was reviewed by attending physician Dr. Day who saw no evidence of fracture. MDM Narrative Medical decision making narrative: This is a generally well-appearing 53-year-old woman who presents with concern for ankle injury sustained yesterday around 1:00 p.m. when she accidentally smashed the side of her ankle into a non mobile wheeled cart. Has been walking on it since the event and some intermittent rest ice compression elevation. Presents to the emergency department today with concern for persistent pain and sensation of tingling inside of her foot and her 4th 5th toes. Exam today is possibly consistent with a ankle fracture given lateral malleolar tenderness, and some tenderness over the 5th metatarsal is also suspicious, x-rays of foot and ankle obtained. Radiology report had not returned at time of patient discharge however attending physician Dr. Day did review the images and did not see evidence of fracture. Patient placed in Oliver wrap and ankle air splint as well as crutches with a work note for light duty. Exam was consistent with sprain/strain and advise patient regarding follow-up plan, return precautions all questions answered. Discharge Plan Departure Patient Disposition: Home Clinical Impression: Right ankle sprain Qualifiers: Encounter type: initial encounter Involved ligament of ankle: anterior talofibular ligament Qualified Code(s): S93.491A - Sprain of other ligament of right ankle, initial encounter Activity Restrictions/Additional Instructions: *You have been diagnosed with [right ankle sprain] *What to do: *Please continue to take your regular medications as directed. [ ] New medication prescriptions sent to your pharmacy: [ ] [ ] New medication written as a paper prescription [ X] No new medications given *Please follow up with your primary care provider in 2-3 days, call for an appointment. Let them know you were seen in the Emergency Department and that we ask that you be seen in follow up. We will electronically transmit a record of today's note if your PCP is in our system. You should do your best to continue with rest ice compression and elevation I am glad you have tried this summer but unfortunately being on her feet today was likely not helping her situation, your exam is consistent with a sprain/strain your x-rays look okay today as evaluated by myself in the emergency department physician. Radiology read is still pending at time of your discharge. I provided a work note for you advising you should be out of work for a few days and may return on light duty with reduction in long periods of standing or walking you will need to try to elevate your leg as much as possible and you can do ice and Oliver wrap over the next 24 hours after that just elevation and Oliver wrap will be helpful you can do ice if you do have persistent swelling but hopefully this will resolve by then. I encourage you to take Tylenol and Advil or ibuprofen for pain. Follow up closely with your primary care provider. We placed you in a air splint for your ankle today. We also provided you with crutches. You should try to be nonweightbearing as much as possible over the next few weeks until your sprain heels. It can take up to 3 weeks for a sprain to heal longer if it has not treated with care. *If you do not have a primary care provider please contact the [facility] Resource line at [phone]. They will ask some questions about your medical history and help get you set up with a doctor in the community. *Return to Emergency Department if you should have any new, worsening or concerning symptoms, such as [fever greater than 101 F, shaking chills, worsening pain, persistent vomiting or other bothersome symptoms] Prescriptions: No Action meclizine 25 mg tablet 25 mg PO TID PRN (Reason: dizziness) Qty: 90 2RF metronidazole 500 mg tablet 500 mg PO BID Qty: 14 0RF Referrals: Abdiel Nuno, [Primary Care Provider] - Stand Alone Forms: Patient Portal/API, Work Release Note ED Sign-out <Brigida Day MD - Last Filed: 06/30/23 18:21> Cosign ED Attending Rajivature Attestation: I did not see this patient. I was available all times for consultation.
[2023-06-30 17:29] VITALS: PULSE 86
[2023-06-30 18:22] VITALS: BP 128/67; PULSE 72; RESP 18; O2SAT 100
== END 2023-06-30 18:28 | disposition home or self-care (01) ==
PROVIDERS: Emergency Provider Student in an Organized Health Care Education/Training Program; PCP Family Medicine
DX: S93.401A Sprain of unspecified ligament of right ankle, initial encounter (principal); W22.8XXA Striking against or struck by other objects, initial encounter
CPT/HCPCS: 29540; 73610; 73630; 99283

== ENCOUNTER 2024-11-02 11:27 | Emergency (ER) | payer OTHER, SELFPAY ==
[2024-11-02 11:32] VITALS: BP 114/62; PULSE 65; RESP 18; TEMP 36.6; O2SAT 100; BMI 21.4
--- NOTE | 2024-11-02 11:38 | DI.RAD.S_ITS ---
PROCEDURE: XR SHOULDER RT MIN 2V INDICATIONS: pain/hurts to move TECHNIQUE: 3 views of the shoulder were acquired. COMPARISON: None. FINDINGS: Bones: No fractures or dislocations. Moderate acromioclavicular joint and glenohumeral joint osteoarthritic changes are seen. No suspicious bony lesions. Visualized ribs appear intact. Soft tissues: No suspicious soft tissue calcifications. IMPRESSION: No acute right shoulder fracture or dislocation. Right shoulder joint osteoarthritis. Dictated by: Christian Persaud M.D. on 11/02/2024 at 12:16 Approved by: Christian Persaud M.D. on 11/02/2024 at 12:16
--- NOTE | 2024-11-02 13:40 | ED_ITS ---
HPI - Extremity Injury (Upper) <Susan Swain PA-C - Last Filed: 11/02/24 16:29> General Chief Complaint: Extremity Injury, Upper Stated Complaint: Right shoulder pain today Time Seen by Provider: 11/02/24 13:21 Source: patient Mode of arrival: Ambulatory History of Present Illness HPI narrative: Ms. Jarrod Us is a very pleasant 54-year-old female with a past medical history of orthopedic injuries who presents to the emergency department for a right shoulder injury that occurred prior to arrival. Patient was throwing a ball when she developed acute severe pain of the right shoulder and a burning sensation. She has not had problems with the shoulder in the past. No numbness tingling or weakness. Patient does have severe pain with range of motion. No open wounds or deformities. No medications prior to arrival. She is right-hand dominant and has history of playing baseball, frequent shoulder use. Related Data Previous Rx's ?Medication ?Instructions ?Recorded meclizine 25 mg tablet 25 mg PO TID PRN dizziness # 90 tabs 05/31/20 metronidazole 500 mg tablet 500 mg PO BID #14 tabs 01/12 methocarbamol 1,000 mg tablet 1,000 mg PO BEDTIME PRN muscle 11/02/24 spasm #14 tabs Allergies Allergy/AdvReac Type Severity Reaction Status Date / Time moxifloxacin (From AVELOX) Allergy Unknown Hives Verified 11/02/24 11:32 Review of Systems <Susan Swain PA-C - Last Filed: 11/02/24 16:29> Review of Systems ROS Unobtainable: All systems reviewed & are unremarkable except as noted in HPI and below Patient History <Susan Swain PA-C - Last Filed: 11/02/24 16:29> Medical History Vaginal discharge Zoster Nephrolithiasis Sinusitis Vision disorder Allergies (~2001) Anxiety (~2007) Restless leg syndrome (~2007) Migraines (~2007) Chicken pox (~1973) Anemia (~2007) Depression (~2007) Left ankle sprain (~2007) Surgical History Anesthesia Status post trigger finger release (~2013) History of tubal ligation (~1997) Family History Father Hypertension Hyperlipidemia Mental health problem Stroke Mother History of heart surgery Brother Mental health problem Sister Mental health problem Grandfather Mental health problem Grandmother Cancer Mental health problem Grandfather Mental health problem Grandmother Mental health problem Social History household members: none Smoking Status: Current every day smoker alcohol intake: never substance use type: does not use Smoking Status: Current every day smoker tobacco type: vaping alcohol intake frequency: 0-2 drinks per day Exam <Susan Swain PA-C - Last Filed: 11/02/24 16:29> Narrative Exam Narrative: GENERAL: 54 year old patient appears stated age. Well-developed patient, in no acute distress. HEAD: Atraumatic. Normocephalic. EYES: No scleral icterus. No injection or drainage. NECK: Trachea midline. Cervical ROM intact. CARDIOVASCULAR: Regular rate RESPIRATORY: ?Nonlabored respirations. ?Speaking in clear, full sentences. EXTREMITIES: Right shoulder without deformities or skin changes. She is nonfocal generalized tenderness of the anterior posterior shoulder. Limited range of motion secondary to pain, positive right-sided empty can test. Strong radial pulse bilaterally and sensation intact to light touch throughout the median, ulnar, radial nerve distribution. NEURO: AOx3. ?Clear speech. ?Moves all 4 extremities appropriately with the exception of right shoulder. SKIN: No rash or erythema of visible areas Initial Vital Signs Initial Vital Signs: Vital Signs Temperature 97.8 F 11/02/24 11:32 Pulse Rate 65 11/02/24 11:32 Respiratory Rate 18 11/02/24 11:32 Blood Pressure 114/62 11/02/24 11:32 Pulse Oximetry 100 11/02/24 11:32 Oxygen Delivery Method Room Air 11/02/24 11:32 <Brigida Jones DO - Last Filed: 11/13/24 07:40> Initial Vital Signs Initial Vital Signs: Vital Signs Temperature 97.8 F 11/02/24 11:32 Pulse Rate 65 11/02/24 11:32 Respiratory Rate 18 11/02/24 11:32 Blood Pressure 114/62 11/02/24 11:32 Pulse Oximetry 100 11/02/24 11:32 Oxygen Delivery Method Room Air 11/02/24 11:32 Course <CHANELLE Laws Last Filed: 11/02/24 16:29> Orders Ordered: Discontinued Medications Acetaminophen (Acetaminophen 325 Mg Tablet) 975 mg PO NOW ONE Stop: 11/02/24 14:00 Last Admin: 11/02/24 14:26 Dose: 975 mg Documented By: HAROLDO Ketorolac Tromethamine (Ketorolac 30 Mg/Ml Vial) 30 mg IM NOW ONE Stop: 11/02/24 14:00 Last Admin: 11/02/24 14:26 Dose: 30 mg Documented By: HAROLDO Vital Signs Vital signs: Vital Signs - 8 hr 11/02/24 11:32 11/02/24 14:32 Temperature 97.8 F Pulse Rate 65 62 Respiratory Rate 18 17 Blood Pressure 114/62 110/60 Pulse Oximetry 100 99 Oxygen Delivery Method Room Air Room Air <Brigida Jones DO - Last Filed: 11/13/24 07:40> Orders Ordered: Discontinued Medications Acetaminophen (Acetaminophen 325 Mg Tablet) 975 mg PO NOW ONE Stop: 11/02/24 14:00 Last Admin: 11/02/24 14:26 Dose: 975 mg Documented By: HAROLDO Ketorolac Tromethamine (Ketorolac 30 Mg/Ml Vial) 30 mg IM NOW ONE Stop: 11/02/24 14:00 Last Admin: 11/02/24 14:26 Dose: 30 mg Documented By: HAROLDO Vital Signs Vital signs: Vital Signs - 8 hr 11/02/24 11:32 11/02/24 14:32 Temperature 97.8 F Pulse Rate 65 62 Respiratory Rate 18 17 Blood Pressure 114/62 110/60 Pulse Oximetry 100 99 Oxygen Delivery Method Room Air Room Air MDM - Extremity Injury (Upper) <CHANELLE Laws Last Filed: 11/02/24 16:29> Medical Records Attestation: I reviewed the patient's medical records. Imaging Data Right Shoulder X-ray: Radiologist's Impression: PROCEDURE: XR SHOULDER RT MIN 2V INDICATIONS: pain/hurts to move TECHNIQUE: 3 views of the shoulder were acquired. COMPARISON: None. FINDINGS: Bones: No fractures or dislocations. Moderate acromioclavicular joint and glenohumeral joint osteoarthritic changes are seen. No suspicious bony lesions. Visualized ribs appear intact. Soft tissues: No suspicious soft tissue calcifications. IMPRESSION: No acute right shoulder fracture or dislocation. Right shoulder joint osteoarthritis. Dictated by: Christian Persaud M.D. on 11/02/2024 at 12:16 Approved by: Christian Persaud M.D. on 11/02/2024 at 12:[address] [facility] Narrative Medical decision making narrative: 54-year-old female with a past medical history of orthopedic injuries who presents to the emergency department for a right shoulder injury that occurred prior to arrival. Differential diagnosis includes but is not limited to rotator cuff tear, biceps tendon injury, labrum injury, sprain, strain, fracture, dislocation, etc. On exam patient is in no acute distress, nontoxic appearing, vital signs within normal limits. She has no deformities of the right shoulder but she does have pain with range of motion, positive and began test. X-ray obtained revealing no acute fracture dislocation, she does have osteoarthritis. Suspect soft tissue injury, we will treat with sling, rice, ibuprofen/acetaminophen, Robaxin to sleep. Recommended follow up with PCP and ortho. Recommended frequently taking sling off to move shoulder to prevent frozen shoulder. Patient verbalized understanding of all information agree with the plan. She is stable for discharge home. Discharge Plan Departure Patient Disposition: Home Clinical Impression: Right shoulder strain Qualifiers: Encounter type: initial encounter Qualified Code(s): S46.911A - Strain of unspecified muscle, fascia and tendon at shoulder and upper arm level, right arm, initial encounter Osteoarthritis of right shoulder region Qualifiers: Osteoarthritis type: unspecified Qualified Code(s): M19.011 - Primary osteoarthritis, right shoulder Instructions: DI for Shoulder Sprain Activity Restrictions/Additional Instructions: Dear Ms. Jarrod Us, Thank you for coming to the emergency department. Today you were evaluated for right shoulder injury. Your x-ray does not show any bony abnormalities but you do have osteoarthritis. I am concerned that you have injured some of the m uscle/soft tissues in your right shoulder. Please use the sling for comfort but be sure to take breaks to move the shoulder throughout the day to prevent frozen shoulder. Please use ibuprofen and Tylenol together for pain and use the prescribed muscle relaxant as well. Follow up with your primary care doctor who may refer you to orthopedics or physical therapy for further management. Please take Ibuprofen (Motrin/Advil) or Acetaminophen (Tylenol) for pain. These are available over the counter. You may take Ibuprofen 600 mg every 8 hours with food for pain. You may also take Acetaminophen 650 mg every 4-6 hours for pain. Do not exceed 3000 mg of Tylenol a day as this can cause liver damage. Do not drink alcohol with either of these medications. Please follow up with your primary care doctor within the next 2-3 days for ER follow-up. (If you do not have a PCP you can call [phone]. ?to schedule an appointment with an [facility] Primary Care Provider) IF YOU DEVELOP ANY NEW OR WORSENING SYMPTOMS, RETURN TO THE ER! Please read the attached instructions, they highlight more specific treatments and interventions for you at home. Thank you for letting me participate in your care, Susan Swain PA-C Prescriptions: New methocarbamol 1,000 mg tablet 1,000 mg PO BEDTIME PRN (Reason: muscle spasm) Qty: 14 0RF No Action meclizine 25 mg tablet 25 mg PO TID PRN (Reason: dizziness) Qty: 90 2RF metronidazole 500 mg tablet 500 mg PO BID Qty: 14 0RF Referrals: Abdiel Nuno DO [Primary Care Provider, Family Practice] Stand Alone Forms: Patient Portal/API ED Sign-out <Brigida Jones DO - Last Filed: 11/13/24 07:40> Cosign ED Attending Amador Attestation: I was immediately available in the department for consultation.
[2024-11-02] MEDS: KETOROLAC 30 MG/ML VIAL IM (14:26)
[2024-11-02] MEDS: ACETAMINOPHEN 325 MG TABLET 975 MG PO (14:26)
[2024-11-02 14:32] VITALS: BP 110/60; PULSE 62; RESP 17; O2SAT 99
== END 2024-11-02 14:34 | disposition home or self-care (01) ==
PROVIDERS: Emergency Provider Physician Assistant; PCP Family Medicine
DX: S46.911A Strain of unspecified muscle, fascia and tendon at shoulder and upper arm level, right arm, initial encounter (principal); M19.011 Primary osteoarthritis, right shoulder
CPT/HCPCS: 73030; 96372; 99283; J1885